=== PATIENT | male | born 1985 | race Hispanic/Latino ===

== ENCOUNTER 2020-09-11 23:23 | Emergency (ER) | payer BC ==
--- NOTE | 2020-09-12 00:15 | ER ---
Nurse's Notes [facility] Name: Franky Teran Age: 35 yrs Sex: Male : 1985 Arrival Date: 09/11/2020 Time: 23:27 Bed 14 Private MD: Diagnosis: Anxiety disorder, unspecified Presentation: 09/11 23:46 Chief complaint: Patient states: A couple of days ago ate some seafood and now has vg1 diarrhea. Is feeling anxious because in May was diagnosed with Covid and is worried that he may have it again. Coronavirus screen: Client denies travel out of the [place] in the last 14 days. Ebola Screen: Patient negative for fever greater than or equal to 101.5 degrees Fahrenheit, and additional compatible Ebola Virus Disease symptoms. Initial Sepsis Screen: Does the patient meet any 2 criteria? No. Patient's initial sepsis screen is negative. Does the patient have a suspected source of infection? No. Patient's initial sepsis screen is negative. Risk Assessment: Do you want to hurt yourself or someone else? Patient reports no desire to harm self or others. Onset of symptoms was September 11, 2020. 23:46 Method Of Arrival: Ambulatory vg1 23:46 Acuity: DEVENDRA 3 vg1 Triage Assessment: 23:49 General: Appears in no apparent distress. comfortable, Behavior is calm, cooperative. vg1 Pain: Denies pain. EENT: No signs and/or symptoms were reported regarding the EENT system. Neuro: Level of Consciousness is awake, alert, obeys commands, Oriented to person, place, time, situation. Cardiovascular: Patient's skin is warm and dry. Respiratory: Airway is patent Respiratory effort is even, unlabored. GI: Reports diarrhea. : No signs and/or symptoms were reported regarding the genitourinary system. Derm: Skin is intact, is healthy with good turgor. Musculoskeletal: Circulation, motion, and sensation intact. Historical: - Allergies: 23:49 No Known Allergies; vg1 - Home Meds: 23:49 None [Active]; vg1 - PMHx: 23:49 None; vg1 - PSHx: 23:49 None; vg1 - Immunization history:: Adult Immunizations up to date, Flu vaccine is not up to date. - Social history:: Smoking status: Patient denies any tobacco usage or history of. Screenin:51 Abuse screen: Denies threats or abuse. Nutritional screening: No deficits noted. 1 Tuberculosis screening: No symptoms or risk factors identified. Fall Risk No fall in past 12 months (0 pts). No secondary diagnosis (0 pts). No IV (0 pts). Ambulatory Aid- None/Bed Rest/Nurse Assist (0 pts). Gait- Normal/Bed Rest/Wheelchair (0 pts) Mental Status- Oriented to own ability (0 pts). Total Hester Fall Scale indicates No Risk (0-24 pts). Assessment: 23:51 Reassessment: See triage note. 1 09/12 00:13 Pain: Denies pain. Pain began. 00:14 Pain: Pain does not radiate. Vital Signs: 03 23:46 BP 140 / 90; Pulse 76; Resp 18; Temp 98.2; Pulse Ox 100% on R/A; Weight 136.08 kg; vg1 Height 5 ft. 8 in. (172.72 cm); Pain 0/10; 23:46 Body Mass Index 45.61 (136.08 kg, 172.72 cm) 1 ED Course: 23:27 Patient arrived in ED. cl3 23:43 Dontrell García, RN is Primary Nurse. 23:47 Robert Mcadams MD is Attending Physician. tw4 23:49 Triage completed. vg1 23:51 Patient maintains SpO2 saturation greater than 95% on room air. vg1 23:51 Patient has correct armband on for positive identification. Bed in low position. Call 1 light in reach. Side rails up X 1. Pulse ox on. NIBP on. 09/12 00:13 No provider procedures requiring assistance completed. Patient did not have IV access during this emergency room visit. 00:14 Arm band placed on right wrist. Administered Medications: No medications were administered Outcome: 00:13 Medical screen evaluation completed per provider. Patient declined treatment. 00:13 Condition: stable 00:13 Instructed on follow up and referral plans. 00:14 Discharge ordered by . tw4 00:15 Patient left the ED. Signatures: Dontrell García, RN RN Robert Mcadams MD MD tw4 Andre K[place] 3 Lucia Hernandez RN RN 1
--- NOTE | 2020-09-12 00:15 | EDPHYS ---
Physician Documentation [facility] Name: Franky Teran Age: 35 yrs Sex: Male : 1985 Arrival Date: 09/11/2020 Time: 23:27 Bed 14 Private MD: ED Physician Robert Mcadams HPI: 09/12 04:58 This 35 yrs old Male presents to ER via Ambulatory with complaints of Chest tw4 Tightness, Anxiety. 04:58 The patient presents to the emergency department with anxiety, over unknown tw4 circumstances. Onset: The symptoms/episode began/occurred today. Past psychiatric history: Prior diagnosis: no previous psychiatric diagnosis known. Associated signs and symptoms: The patient has no apparent associated signs or symptoms. Severity of symptoms: At their worst the symptoms were mild in the emergency department the symptoms are unchanged. The patient has not experienced similar symptoms in the past. Historical: - Allergies: 09/11 23:49 No Known Allergies; vg1 - Home Meds: 23:49 None [Active]; vg1 - PMHx: 23:49 None; vg1 - PSHx: 23:49 None; vg1 - Immunization history:: Adult Immunizations up to date, Flu vaccine is not up to date. - Social history:: Smoking status: Patient denies any tobacco usage or history of. ROS: 09/12 04:58 Constitutional: Negative for fever, chills, and weight loss, Eyes: Negative for injury, tw4 pain, redness, and discharge. Respiratory: Negative for shortness of breath, cough, wheezing, and pleuritic chest pain, Abdomen/GI: Negative for abdominal pain, nausea, vomiting, diarrhea, and constipation, Back: Negative for injury and pain, MS/Extremity: Negative for injury and deformity, Skin: Negative for injury, rash, and discoloration, Neuro: Negative for headache, weakness, numbness, tingling, and seizure. Cardiovascular: Positive for chest pain, Negative for edema, orthopnea, paroxysmal nocturnal dyspnea. Psych: Positive for anxiety, Negative for depression, drug dependence, alcohol dependence, auditory hallucinations, visual hallucinations, homicidal ideation, insomnia, suicide gesture. Exam: 04:58 Constitutional: This is a well developed, well nourished patient who is awake, alert, tw4 and in no acute distress. Head/Face: Normocephalic, atraumatic. Chest/axilla: Normal chest wall appearance and motion. Nontender with no deformity. No lesions are appreciated. Cardiovascular: Regular rate and rhythm with a normal S1 and S2. No gallops, murmurs, or rubs. Normal PMI, no JVD. No pulse deficits. Respiratory: Lungs have equal breath sounds bilaterally, clear to auscultation and percussion. No rales, rhonchi or wheezes noted. No increased work of breathing, no retractions or nasal flaring. Abdomen/GI: Soft, non-tender, with normal bowel sounds. No distension or tympany. No guarding or rebound. No evidence of tenderness throughout. Back: No spinal tenderness. No costovertebral tenderness. Full range of motion. Skin: Warm, dry with normal turgor. Normal color with no rashes, no lesions, and no evidence of cellulitis. MS/ Extremity: Pulses equal, no cyanosis. Neurovascular intact. Full, normal range of motion. Neuro: Awake and alert, GCS 15, oriented to person, place, time, and situation. Cranial nerves II-XII grossly intact. Motor strength 5/5 in all extremities. Sensory grossly intact. Cerebellar exam normal. Normal gait. 04:58 Psych: Behavior/mood is pleasant, Affect is calm, Oriented to person, place, time, Patient has no thoughts/intents to harm self or others. Judgement / Insight is normal. Vital Signs: 09/11 23:46 BP 140 / 90; Pulse 76; Resp 18; Temp 98.2; Pulse Ox 100% on R/A; Weight 136.08 kg; vg1 Height 5 ft. 8 in. (172.72 cm); Pain 0/10; 23:46 Body Mass Index 45.61 (136.08 kg, 172.72 cm) vg1 MDM: 23:47 Patient medically screened. tw4 09/12 00:14 Data reviewed: vital signs, nurses notes. Medical screen evaluation completed. EMTALA tw4 emergency medical condition absent. 04:58 Differential diagnosis: drug withdrawal. acute psychotic break, depression. Data tw4 interpreted: Pulse oximetry: Interpretation: normal. Counseling: I had a detailed discussion with the patient and/or guardian regarding: the historical points, exam findings, and any diagnostic results supporting the discharge/admit diagnosis. Special discussion: I discussed with the patient/guardian in detail that at this point there is no indication for admission to the hospital. It is understood, however, that if the symptoms persist or worsen the patient needs to return immediately for re-evaluation. Administered Medications: No medications were administered Disposition: 09/12/20 00:14 Discharged to Home. Impression: Anxiety disorder, unspecified. - Condition is Stable. - Medication Reconciliation Form, Thank You Letter, Antibiotic Education, Prescription Opioid Use form. - Follow up: Private Physician; When: Upon discharge from the Emergency Department; Reason: Recheck today's complaints, Continuance of care, Re-evaluation by your physician. - Problem is new. - Symptoms are unchanged. Signatures: Dontrell García RN RN Robert Mcadams MD MD tw4 Lucia Hernandez RN RN vg1 Corrections: (The following items were deleted from the chart) 00:15 00:14 09/12/2020 00:14 Discharged to Home. Impression: Anxiety disorder, unspecified. wh Condition is Stable. Forms are Medication Reconciliation Form, Thank You Letter, Antibiotic Education, Prescription Opioid Use. Follow up: Private Physician; When: Upon discharge from the Emergency Department; Reason: Recheck today's complaints, Continuance of care, Re-evaluation by your physician. Problem is new. Symptoms are unchanged. tw4
[2020-09-12 18:52] VITALS: BP 140/90; TEMP 98.2; O2SAT 100
== END 2020-09-12 00:15 | disposition home or self-care (01) ==
LOC: ER 23:23
DX: F41.9 Anxiety disorder, unspecified (principal)
CPT/HCPCS: 99284